=== PATIENT | female | born 1960 | race Caucasian/White ===

== ENCOUNTER 2024-09-04 11:32 | Emergency (ER) | payer OTHER, SELFPAY ==
[2024-09-04 11:40] VITALS: BP 141/90
[2024-09-04 12:21] LABS: % Basophils 0.7 % (0-2); % Eosinophils 0.5 % (0-6); % Immature Granulocytes 0.4 % (0-0.5); % Lymphocytes 21.9 % (20.5-51.1); % Monocytes 11.8 % (1.7-9.3); % Neutrophils 64.7 % (42.2-75.2); Absolute Basophils 0.1 10^3/uL (0-0.2); Absolute Eosinophils 0.1 10^3/uL (0-0.7); Absolute Immature Granulocytes 0.1 10^3/uL (0-0.05); Absolute Lymphocytes 2.9 10^3/uL (1.2-3.4); Absolute Monocytes 1.6 10^3/uL (0.1-0.6); Absolute Neutrophils 8.5 10^3/uL (1.4-6.5); Hematocrit 39.9 % (37.0-47.0); Hemoglobin 13.5 g/dL (12.0-16.0); Mean Corp Hgb Conc. 33.8 g/dL (33.0-37.0); Mean Corpuscular Hgb 32.1 pg (27.0-31.0); Mean Platelet Volume 9.3 fL (7.4-10.4); Nucleated Red Blood Cells % 0 %; Platelet Count 332 10^3/uL (130-400); Red Cell Dist. Width 12.9 % (11.5-14.5); White Blood Cell Count 13.2 10^3/uL (4.8-10.8)
[2024-09-04 12:38] LABS: ALT (SGPT) 24 U/L (0-35); AST (SGOT) 22 U/L (14-36); Albumin 5.2 g/dl (3.5-5.0); Alkaline Phosphatase 89 U/L (38-126); Blood Urea Nitrogen 11 mg/dl (7-17); Calcium 10.5 mg/dl (8.4-10.2); Carbon Dioxide 27 mmol/L (22-30); Chloride 102 mmol/L (98-107); Glucose 114 mg/dl (70-99); Potassium 4.5 mmol/L (3.5-5.1); Sodium 141 mmol/L (135-145); Total Bilirubin 1.2 mg/dl (0.2-1.3); Total Protein 7.5 g/dl (6.3-8.2); eGFR > 60.00
[2024-09-04 12:45] LABS: Lipase 104 U/L (23-300)
[2024-09-04 13:39] VITALS: BP 138/93
[2024-09-04 13:40] VITALS: BP 138/94
[2024-09-04] MEDS: ZOFRAN 4 MG IV (13:47)
--- NOTE | 2024-09-04 13:47 | ED.GENMED ---
History of Present Illness
General
Chief Complaint: Abdominal Symptoms
Source: patient
Time Seen by Provider: 09/04/24 13:21
History of Present Illness
History of Present Illness:
64-year-old female with past medical history of hypertension, hyperlipidemia and axu-tvtnkjh-dvswsjywo diabetes presenting to the emergency department for evaluation of left-sided groin/lower abdominal discomfort that has been ongoing for the last
few months accompanied with some loose stools, seemingly worse over the last week or so prompting her to come to the ER today. Patient notes associated bloating sensation within her abdomen but no abnormal weight gain, somewhat diminished p.o.
intake to solids, nausea and stating that the pain seems to be worse when she walks however when she moves her hip/pelvis/lower leg it does not reproduce the pain. Patient states that she has been following up with her usual providers for her
routine medical care including [employer] and GI. Patient had a colonoscopy not too long ago and states that everything came back okay but does note that she had evidence for diverticulum on the scope. Family history noncontributory. Social history was
noted for patient drinking 1-2 wine coolers somewhat daily over the last few weeks. Patient does note a considerable amount of increased stress due to an elderly child living with her who 'has some problems', being and working a full-time
job.
Past History
Past History
ED Past Medical History: HTN, Hypercholesterolemia and NIDDM
ED Past Surgical History: None
Social History
Tobacco: Non-smoker
Alcohol: Occasional
Drug: None
Personal:
Living: with family
Employment: Employed
Review of Systems
Review of Systems
All Other Systems: ROS reviewed and negative except as documented in HPI and ROS
Phy Exam
Physical Exam
Physical Exam:
GENERAL: Alert , in no apparent distress
EYE: clear conjunctiva b/l
HEAD: NCAT
ENT: mmm.
CARDIAC: Regular rate and rhythm .
LUNGS: Clear breath sounds bilaterally, no acute respiratory distress, no wheezes/rales/rhonchi
ABDOMEN: Soft, without focal tenderness, no r/g, no cvat
NEUROLOGICAL: Alert and oriented
SKIN: Warm and dry, skin intact.
MUSCULOSKELETAL: No edema, well perfused. Left hip has full range of motion without pain. There is no pain with resisted hip flexion or abduction. Neurovascularly intact
PSYCH: Normal and appropriate interaction.
Scores
Heart Failure Risk
Heart Failure Risk Score: Not Applicable
Heart Score for Chest Pain Patients
STEMI patient?: Not applicable
Withdrawal Assessment of Alcohol
Withdrawal Assessment Completed?: Not applicable
Course
Orders/Labs/Results
Orders:
Orders
09/04/24 11:48
Complete Blood Count/With Diff Urgent
Comprehensive Metabolic Panel Urgent
Lipase Urgent
09/04/24 13:26
CT Abd/pelvis W Iv Cont Urgent
Comment:
Reason For Exam: LLQ pain, loose stools
09/04/24 13:38
Ondansetron Injectable [Zofran] 4 mg IV NOW STA
09/04/24 14:13
Urinalysis Reflex To Culture Urgent
Date Specimen was Collected: 09/04/24
Time Specimen was Collected: 14:05
09/04/24 15:50
Ketorolac [Toradol] 30 mg IV NOW STA
09/04/24 16:21
Amoxicillin 875 mg/Clav 125 mg [Augmentin 875 mg/125 mg] 1 tablet PO NOW STA
Abnormal Lab Results
09/04/24
11:48
WBC 13.2 H 10^3/uL
(4.8-10.8)
MCH 32.1 H pg
(27.0-31.0)
Abs Immat Gran (auto) 0.1 H 10^3/uL
(0-0.05)
Absolute Neuts (auto) 8.5 H 10^3/uL
(1.4-6.5)
Absolute Monos (auto) 1.6 H 10^3/uL
(0.1-0.6)
Monocytes % 11.8 H %
(1.7-9.3)
Glucose 114 H mg/dl
(70-99)
Calcium 10.5 H mg/dl
(8.4-10.2)
Albumin 5.2 H g/dl
(3.5-5.0)
09/04/24 11:48
09/04/24 11:48
Vital Signs
Initial and Last Documented VS:
Initial Vital Signs
Temp Pulse Resp BP Pulse Ox
98.0 F 73 18 141/90 97
09/04/24 11:40 09/04/24 11:40 09/04/24 11:40 09/04/24 11:40 09/04/24 11:40
Last Documented Vital Signs
Temp Pulse Resp BP Pulse Ox
98.0 F 74 15 121/67 93
09/04/24 11:40 09/04/24 13:40 09/04/24 13:40 09/04/24 14:00 09/04/24 14:00
MDM/Problems Addressed
Differential Diagnosis Includes:
Diverticulitis, urinary tract infection, pyelonephritis, ureteral colic, hip muscle/tendon strain, hernia, ovarian cyst
MDM/Problems Addressed:
64-year-old female presenting to the ER for a few weeks/months of left-sided pelvic/abdominal pain. Recently started with some looser stools. Patient stating that symptoms have gotten to the point where she feels she needed further evaluation
which is what prompted her to come to the ER today. Exam is otherwise reassuring. Patient does have a leukocytosis of 13,000 but otherwise unremarkable chemistry. Will check urinalysis as well as CT imaging. Patient requesting Zofran.
Disposition pending
*Radiology
Radiology exam reviewed: radiology read reviewed
*Pulse Oximetry
Patient hypoxic: no
*Critical Care Note
Total Time (30-74mins, 75-104mins- exclusive of procedures): Not Applicable
Patient Management
Escalation/DeEscalation of care consider admission/obs:
Patient's CAT scan shows uncomplicated sigmoid diverticulitis. She did request something for pain prior to discharge. Will also give patient a dose of Augmentin prior to her discharge. Advised on bland diet for the next 24 to 48 hours. Follow-up
with primary care provider. Patient aware of return precautions to the ER. Stable for discharge.
ED Attending Note
-
Portions of this chart may have been created with voice recognition software.� Occasional wrong word or��sound alike� substitutions may have occurred due to the inherent limitations of voice recognition software.
Discharge Plan
Departure
Patient Disposition: Home (Routine Discharge)
Date of Disposition: 09/04/24
Time of Disposition: 16:22
Patient with high blood pressure during this ER visit?: Yes
Discharge Problem:
Diverticulitis
Instructions: Diverticulitis - Discharge instructions
Prescriptions:
New
amoxicillin-pot clavulanate 875-125 mg tablet
1 tab PO BID Qty: 19 0RF
Referrals:
Sofia Horan DO [Family Provider] -
Interventions
Interventions:
*Risk Screen - Suicide Last Done: 09/04/24 11:40
*General Assessment Last Done: 09/04/24 11:40
*Neglect/Abuse Screening Last Done: 09/04/24 13:51
*ED- Fall Risk Assessment Last Done: 09/04/24 13:50
*ED COVID-19 Vaccine History Last Done: 09/04/24 13:41
IO-Rfqoci-Pclbrrffei Assessment Last Done: 09/04/24 13:48
Discharge Date and Time
Print Language: LITHUANIAN
[2024-09-04 14:00] VITALS: BP 121/67
[2024-09-04 14:41] LABS: Urine Albumin Negative (Neg - Trace); Urine Bilirubin Negative (Negative); Urine Character Clear (Clear); Urine Color Yellow; Urine Glucose Negative (Negative); Urine Ketone Negative (Negative); Urine Leukocyte Negative (Negative); Urine Nitrite Negative (Negative); Urine Occult Blood Negative (Negative); Urine Urobilinogen Negative (Neg - 1+)
[2024-09-04] MEDS: TORADOL 30 MG IV (16:00)
[2024-09-04] MEDS: AUGMENTIN 875 MG/125 MG 1 TABLET PO (16:37)
[2024-09-04 16:40] VITALS: BP 138/87
== END 2024-09-04 16:43 | disposition home or self-care (01) ==
LOC: EMR 11:32
PROVIDERS: Emergency Medicine; Physician Assistant Medical; EMERGENCY PHYSICIAN Emergency Medicine; FAMILY PHYSICIAN Family Medicine
DX: K57.32 Diverticulitis of large intestine without perforation or abscess without bleeding (principal); I10 Essential (primary) hypertension; E78.00 Pure hypercholesterolemia, unspecified; E11.9 Type 2 diabetes mellitus without complications
CPT/HCPCS: 99285; 96374; 96375; 74177; 80053; 81003; 83690; 85025; Q9967

== ENCOUNTER → 2024-09-13 11:41 | Outpatient (REF) | payer OTHER, SELFPAY | LOC: WDC 11:41 | PROVIDERS: ATTENDING PHYSICIAN Family Medicine | DX: Z12.31 Encounter for screening mammogram for malignant neoplasm of breast (principal) | CPT/HCPCS: 77063; 77067 ==

== ENCOUNTER 2025-03-22 04:18 | Emergency (ER) | payer OTHER, SELFPAY ==
[2025-03-22 04:20] VITALS: BP 179/112
[2025-03-22 04:44] VITALS: BMI 29.5
--- NOTE | 2025-03-22 04:48 | ED.GENMED ---
History of Present Illness
General
Chief Complaint: Ear Problem
Source: patient
Exam Limitations: none
Time Seen by Provider: 03/22/25 04:34
Nursing documentation reviewed up to this point in time: agreed with
History of Present Illness
History of Present Illness:
65-year-old female presenting to the emergency department today with concerns of left ear pain and a popping sensation just prior to arrival has noted some bleeding from the area. Not on blood thinners. Did have upper respiratory symptoms over the
past week or so.
Past History
Past History
ED Past Medical History: HTN, Hypercholesterolemia and NIDDM
ED Past Surgical History: None
Social History
Tobacco: Non-smoker
Alcohol: Occasional
Drug: None
Personal:
Living: with family
Employment: Employed
Review of Systems
Review of Systems
Allergies reviewed?: Yes
All Other Systems: ROS reviewed and negative except as documented in HPI and ROS
Phy Exam
Physical Exam
Physical Exam:
GENERAL: Alert , in no apparent distress
EYE: pupils equal and reactive
NECK: Supple, no significant adenopathy.
ENT: Ruptured tympanic membrane the left side small mount of blood in the ear canal no external ear abnormalities o/p clr, mmm.
CARDIAC: Regular rate and rhythm .
LUNGS: Clear breath sounds bilaterally, no acute respiratory distress, no wheezes/rales/rhonchi
ABDOMEN: Soft, without focal tenderness, no r/g, no cvat
NEUROLOGICAL: Alert and oriented, no focal neuro deficits
SKIN: Warm and dry, skin intact.
MUSCULOSKELETAL: No edema, well perfused.
PSYCH: Normal and appropriate interaction.
Course
Orders/Labs/Results
Orders:
Orders
03/22/25 04:44
Amoxicillin 875 mg/Clav 125 mg [Augmentin 875 mg/125 mg] 1 tablet PO NOW STA
Ciprofloxacin HCl [Cipro] 4 dropperett OTIC NOW STA
Ketorolac [Toradol] 30 mg IM NOW STA
Vital Signs
Initial and Last Documented VS:
Initial Vital Signs
Temp Pulse Resp BP Pulse Ox
98.3 F 80 22 179/112 97
03/22/25 04:20 03/22/25 04:20 03/22/25 04:20 03/22/25 04:20 03/22/25 04:20
Last Documented Vital Signs
Temp Pulse Resp BP Pulse Ox
98.3 F 80 22 179/112 97
03/22/25 04:20 03/22/25 04:20 03/22/25 04:20 03/22/25 04:20 03/22/25 04:49
MDM/Problems Addressed
MDM/Problems Addressed:
65-year-old female presenting to the department today with a sticker just prior to arrival. Has had some upper respiratory symptoms and nasal congestion over the past few days. Here she was found to have a ruptured tympanic membrane with a small
little blood in the ear canal. Patient would likely ear effusion rupture. No hemorrhage. Plan for treatment and ENT follow-up. Return precautions given.
*Pulse Oximetry
SaO2: 97
Oxygen Mode of Delivery: Room air
Patient hypoxic: no (99)
*Critical Care Note
Total Time (30-74mins, 75-104mins- exclusive of procedures): Not Applicable
ED Attending Note
-
Portions of this chart may have been created with voice recognition software.� Occasional wrong word or��sound alike� substitutions may have occurred due to the inherent limitations of voice recognition software.
Discharge Plan
Departure
Patient Disposition: Home (Routine Discharge)
Date of Disposition: 03/22/25
Time of Disposition: 04:55
Patient with high blood pressure during this ER visit?: No
Condition: Good
Covid-19: Not Applicable
Discharge Problem:
Acute otitis media of left ear with perforation
Instructions: Serous Otitis Media (DC)
Prescriptions:
New
ofloxacin 0.3 % drops
10 drp otic (ear) DAILY 7 Days Qty: 10 0RF
amoxicillin-pot clavulanate 875-125 mg tablet
1 tab PO BID 7 Days Qty: 14 0RF
fluticasone propionate [Flonase Allergy Relief] 50 mcg/actuation spray,suspension
1 spray intranasal BID Qty: 16 0RF
No Action
amoxicillin-pot clavulanate 875-125 mg tablet
1 tab PO BID Qty: 19 0RF
Referrals:
Michel De Guzman MD [Active, ENT] - Follow up in 10 days
Stand Alone Forms: Return to Work
Activity Restrictions/Additional Instructions:
You came to the emergency department today with concerns of perforation to your left eardrum. Please use the prescribed medications and follow-up closely with the ENT doctor. Return for any worsening, new or concerning symptoms.
Interventions
Interventions:
*Risk Screen - Suicide Last Done: 03/22/25 04:20
*General Assessment Last Done: 03/22/25 04:44
*ED- Fall Risk Assessment Last Done: 03/22/25 04:44
*ED COVID-19 Vaccine History Last Done: 03/22/25 04:44
*ED Influenza Vaccine History Last Done: 03/22/25 04:44
Discharge Date and Time
Print Language: ROMANSH
[2025-03-22] MEDS: AUGMENTIN 875 MG/125 MG 1 TABLET PO (04:58)
[2025-03-22] MEDS: TORADOL 30 MG IM (04:59)
[2025-03-22] MEDS: CIPRO 1 DROPPERETT OTIC (05:05)
== END 2025-03-22 05:28 | disposition home or self-care (01) ==
LOC: EMR 04:18
PROVIDERS: EMERGENCY PHYSICIAN Student in an Organized Health Care Education/Training Program; FAMILY PHYSICIAN Family Medicine
DX: H66.92 Otitis media, unspecified, left ear (principal); H72.92 Unspecified perforation of tympanic membrane, left ear; I10 Essential (primary) hypertension; E78.00 Pure hypercholesterolemia, unspecified; E11.9 Type 2 diabetes mellitus without complications
CPT/HCPCS: 99282